=== PATIENT | male | born 1975 | race Caucasian/White ===

== ENCOUNTER 2021-09-06 08:27 | Day surgery (SDC) | payer OTHER | END 2021-09-06 16:15 | disposition home or self-care (01) | LOC: CIR.AMB 08:27 | PROVIDERS: ATTEND Orthopaedic Surgery | DX: S46.091A Other injury of muscle(s) and tendon(s) of the rotator cuff of right shoulder, initial encounter (principal); S29.011A Strain of muscle and tendon of front wall of thorax, initial encounter; Z91.013 Allergy to seafood; E78.00 Pure hypercholesterolemia, unspecified; Z86.16 Personal history of COVID-19 ==